=== PATIENT | female | born 1995 | race Caucasian/White ===

== ENCOUNTER 2016-10-21 09:22 | Emergency (ER) | payer OTHER ==
[~2016-10-21] VITALS: Ht 162.6 cm; Wt 57.7 kg
[2016-10-21] MEDS ORDERED: KETOROLAC 30 MG/1 ML IV ONE (10:30)
[2016-10-21] MEDS ORDERED: DIAZEPAM 5 MG/ML, 10ML VIAL IV ONE (10:30)
[2016-10-21] MEDS ORDERED: SODIUM CHLORIDE 0.9% 1,000ML IVBOLUS ONE (10:30)
[2016-10-21] MEDS ORDERED: MORPHINE SULFATE 4 MG/ML, 1ML IVPush PRN (10:30)
[2016-10-21 11:27] VITALS: BP 117/76
[2016-10-21] MEDS ORDERED: DIAZEPAM 5 MG TABLET ONE (11:56)
[2016-10-21] MEDS ORDERED: DIAZEPAM 5 MG TABLET PO ONE (12:00)
== END 2016-10-21 12:13 | disposition home or self-care (01) ==
LOC: ED 12:11
DX: S16.1XXA Strain of muscle, fascia and tendon at neck level, initial encounter (principal); R56.9 Unspecified convulsions; G89.29 Other chronic pain; X58.XXXA Exposure to other specified factors, initial encounter; Y93.89 Activity, other specified; Y92.89 Other specified places as the place of occurrence of the external cause; Y99.8 Other external cause status
CPT/HCPCS: 70450; 72125; 96361; 96374; 99285; J1885; J3360; J7030

== ENCOUNTER 2018-04-09 03:53 | Outpatient (CLI) | payer OTHER, MEDICAID ==
[~2018-04-09] VITALS: Ht 162.6 cm; Wt 65.9 kg
[2018-04-09] MEDS ORDERED: ACETAMINOPHEN 500 MG TABLET ONE (04:35)
== END 2018-04-09 05:26 | disposition home or self-care (01) ==
LOC: LDOP 03:53
PROVIDERS: ATTEND Obstetrics & Gynecology
DX: O99.89 Other specified diseases and conditions complicating pregnancy, childbirth and the puerperium (principal); N13.30 Unspecified hydronephrosis; O26.892 Other specified pregnancy related conditions, second trimester; Z3A.24 24 weeks gestation of pregnancy
CPT/HCPCS: 59025; 76770; 99211; G0463